=== PATIENT | male | born 1980 | race Caucasian/White ===

== ENCOUNTER 2017-05-20 10:52 | Day surgery (SDC) | payer OTHER ==
[2017-05-18 12:25] VITALS: BMI 36.6
[2017-05-20] MEDS ORDERED: oxyCODONE HCL 5 MG TABLET PO PRN (12:47)
[2017-05-20] MEDS ORDERED: ONDANSETRON 4 MG/2 ML VIAL IVPUSH PRN (12:47)
[2017-05-20] MEDS ORDERED: PROMETHAZINE HCL 25 MG/1 ML VIAL IVPUSH PRN (12:47)
[2017-05-20] MEDS ORDERED: LACTATED RINGERS SOLUTION 1,000 ML IV SCH (13:00)
[2017-05-20] MEDS ORDERED: MIDAZOLAM HCL 2 MG/2 ML SINGLE DOSE VIAL ONE (13:02)
[2017-05-20] MEDS ORDERED: SUCCINYLCHOLINE CHLORIDE 200 MG/10 ML VIAL ONE (13:03)
[2017-05-20] MEDS ORDERED: PROPOFOL 20 ML ONE ×2 (13:03)
--- NOTE | 2017-05-20 13:09 | HP ---
History & Physical Update - History History: No Change - Physical Physical: No Change - Assessment Assessment: No Change - Plan Plan: No Change
--- NOTE | 2017-05-20 13:11 | OP ---
Operative Note - Note: Operative Date: 05/20/17 Pre-Operative Diagnosis: L ureteral calculus Operation: L ureteroscopic laser lithotripsy and JJ stent change, stone basketing Findings: 4 mm L mid ureteral calculus Post-Operative Diagnosis: Same as Pre-op Surgeon: Surinder Venegas Anesthesiologist/FILLING STATION ATTENDANT: Qi Leon MD Anesthesia: General Specimens Removed: L ureteral calculus Estimated Blood Loss (mls): 0 Drains & Tubes with Location: 6 fr 26 cm L JJ stent Operative Report Dictated: Yes
[2017-05-20] MEDS ORDERED: ceFAZolin SODIUM 1 GM VIAL IVPB ONE (13:21)
[2017-05-20] MEDS ORDERED: ceFAZolin SODIUM 1 GM VIAL ONE ×2 (13:22→13:27)
[2017-05-20] MEDS ORDERED: LIDOCAINE HCL/PF 2% SDV 5ML VIAL ONE (13:27)
[2017-05-20] MEDS ORDERED: KETOROLAC TROMETHAMINE 30 MG/1 ML VIAL ONE (13:27)
[2017-05-20] MEDS ORDERED: DEXAMETHASONE SOD PHOSPHATE 4 MG/1 ML VIAL ONE (13:27)
[2017-05-20] MEDS ORDERED: IOHEXOL 300 MG/ML INFUS..BTL IV ONE (13:29)
--- NOTE | 2017-05-20 14:22 | OP ---
DATE OF OPERATION: 05/20/2017 PREOPERATIVE DIAGNOSIS: Left ureteral calculus. POSTOPERATIVE DIAGNOSIS: Left ureteral calculus. PROCEDURE PERFORMED: Left ureteroscopic laser lithotripsy, left JJ stent change and stone basketing. SURGEON: Surinder Varma M.D. COMPUTER ASSEMBLER: None. ANESTHESIA: General via laryngeal mask. ANESTHESIOLOGIST: Qi Leon MD SPECIMENS: Left ureteral calculus. CULTURES: None. DRAINS: A 6-Scottish 26-cm left JJ stent. ESTIMATED BLOOD LOSS: None. COMPLICATIONS: None. DESCRIPTION OF PROCEDURE: The patient was brought into the operating room and placed on the operating table in the supine position. After the administration of intravenous antibiotics, general anesthesia was administered via laryngeal mask. Sequential compression devices were placed, and the patient was placed in the dorsal lithotomy position. The genitals and perineum were prepped and draped in the usual sterile manner. A 22-Scottish cystoscope was inserted into the bladder under direct vision. The obturator was removed and urine was evacuated. The 30-degree telescope was inserted and cystoscopy was performed. This demonstrated no tumors or stones. There was an indwelling left JJ stent. Using the grasping the grasping forceps, the JJ stent was grasped at its tip, brought to the urethral meatus and then cannulated with the 0.038 guidewire, which was advanced to the level of the left renal pelvis under fluoroscopic and direct visual guidance. Now the bladder was emptied and the cystoscope removed. Now the semi-rigid ureteroscope was inserted alongside the guidewire into the left ureteral orifice, to the level of the left mid-ureter, where a 4-mm stone was visualized. Using a 365-micron laser fiber, the stone was fragmented into small pieces. The laser fiber was removed, and a basket was inserted. The fragments were removed using the basket and sent to Pathology as a specimen. A retrograde pyelogram was done, which demonstrated opacification of the collecting system with the guidewire in good position and no extravasation of contrast. The ureter was reinspected and no additional stones were seen. Now the cystoscope was back-loaded and a 6-Scottish 26-cm left JJ stent was inserted over the guidewire under direct visual and fluoroscopic guidance, leaving 1 coil in the renal pelvis and 1 coil in the bladder. The bladder was emptied and the cystoscope removed. The stent was secured to the penis with suture and Tegaderm. The patient tolerated the procedure well. He was awoken from anesthesia in the operating room, extubated and was transferred to the recovery room in stable condition. He will be followed in the office next week for stent removal. SURINDER VARMA M.D. [id number]
[2017-05-20 14:47] VITALS: TEMP 97.6
[2017-05-20 15:35] VITALS: BP 132/74; PULSE 83
--- NOTE | 2017-05-21 19:01 | PATH ---
Surgical Pathology Report Patient Name: NANCY CRABTREE [facility]. Rec. #: [id number] /Age/Gender: 1980 (Age: 36) / M Account: [id number] Location: [facility] Taken: 05/21/2017 Received: 05/21/2017 Reported: 05/21/2017 Physicians: Surinder Venegas M.D. Specimen(s) Received A: ESPLANT LEFT URETERAL STENT B: LEFT URETERAL STONE Clinical History Calculus of left ureter Final Diagnosis A. NUCLEAR TECHNOLOGIST, LEFT URETER, REMOVAL: URETERAL STENT (GROSS ONLY). B. LEFT URETERAL STONE, EXTRACTION: CALCULI SUBMITTED FOR CHEMICAL ANALYSIS (gross only). Electronically Signed Danny Hightower M.D. Gross Description A. Received fresh labeled "removed left ureteral stent," is a 36 cm in length blue-green, coiled portion of tubing, consistent with a ureteral stent. No soft tissue is present. No sections are submitted, gross only. B. Received fresh labeled "left ureteral stone," are 2 floyd fraga, irregular calculi measuring 0.2 and 0.3 cm in greatest dimension. The specimens are sent for chemical analysis. DL/05/21/2017 saudi/05/21/2017
== END 2017-05-20 15:47 | disposition home or self-care (01) ==
LOC: JASU-SURG 10:52
PROVIDERS: ATTEND Urology
PROC: 0TF78ZZ Fragmentation in Left Ureter, Via Natural or Artificial Opening Endoscopic (ICD-10-PCS; principal; 2017-05-20 13:00)
PROC: 0T778DZ Dilation of Left Ureter with Intraluminal Device, Via Natural or Artificial Opening Endoscopic (ICD-10-PCS; 2017-05-20 13:00)
DX: N20.1 Calculus of ureter (principal)
CPT/HCPCS: 36415; 76000-TC; 82360; 88300-TC; 94760